=== PATIENT | female | born 1940 | race Caucasian/White ===

== ENCOUNTER → 2018-11-11 | Outpatient (CLI) | payer MEDICARE, OTHER | LOC: M.RAD 10:50 | DX: Z12.31 Encounter for screening mammogram for malignant neoplasm of breast (principal) ==

== ENCOUNTER 2019-08-10 15:01 | Emergency (ER) | payer MEDICARE, OTHER ==
[~2019-08-10] VITALS: Ht 154.9 cm; Wt 68.0 kg
[2019-08-10 15:25] VITALS: BP 167/72
[2019-08-10] MEDS ORDERED: SYNTHROID75 MCG PO (15:28)
[2019-08-10] MEDS ORDERED: CARDIZEM CD120 MG PO (15:28)
[2019-08-10] MEDS ORDERED: ACETAMINOPHEN-1 EAC1 PO (16:13)
--- NOTE | 2019-08-11 10:27 | EKG ---
[place] [address] ELECTROCARDIOGRAM REPORT Name: ADAMA HERNADEZ [id number] Admission: 08/10/19 Attend Phys: Discharge: 08/10/19 Date of : 40 Report #: [id number] THIS REPORT FOR: //name// [facility] ED Test Date: 2019-08-10 Test Time: 15:58:11 Pat Name: ADAMA HERNADEZ Department: Room: Gender: F Commercial Sales Representative: : 1940 Requested By: Jayde Cruz Order Number: [id number] MD: Сергей Joy Measurements Intervals [place] Rate: 57 P: 53 [place]: 201 QRS: 18 QRSD: 89 T: 57 QT: 430 QTc: 419 Interpretive Statements Sinus rhythm Multiple ventricular premature complexes Low voltage, precordial leads No previous ECG available for comparison Electronically Signed On 08-11-2019 10:27:04 CDT by Сергей Joy [email or web address] <ELECTRONICALLY SIGNED> By: Сергей Joy MD, [facility] 08/11/19 1027 1558 [id number] Сергей Joy MD, FACC /EPI
== END 2019-08-10 16:30 | disposition home or self-care (01) ==
LOC: M.ERS 15:01
DX: S83.92XA Sprain of unspecified site of left knee, initial encounter (principal); M19.90 Unspecified osteoarthritis, unspecified site; E03.9 Hypothyroidism, unspecified; Z90.710 Acquired absence of both cervix and uterus; X50.0XXA Overexertion from strenuous movement or load, initial encounter; Y92.89 Other specified places as the place of occurrence of the external cause; Y93.89 Activity, other specified; Y99.8 Other external cause status

== ENCOUNTER → 2020-01-30 | Outpatient (CLI) | payer MEDICARE, OTHER ==
[~2020-01-30] MED LIST: ACETAMINOPHEN-1 EAC1 PO; CARDIZEM CD120 MG PO; SYNTHROID75 MCG PO
== END ==
LOC: M.RAD 11:00
DX: Z12.31 Encounter for screening mammogram for malignant neoplasm of breast (principal)

== ENCOUNTER → 2021-09-27 | Outpatient (CLI) | payer MEDICARE, OTHER | LOC: M.RAD 10:26 | PROVIDERS: ATTEND Nurse Practitioner Family | DX: Z12.31 Encounter for screening mammogram for malignant neoplasm of breast (principal) ==